=== PATIENT | female | born 1980 | race Caucasian/White ===

== ENCOUNTER 2020-10-19 21:49 | Emergency (ER) | payer OTHER ==
[~2020-10-19] VITALS: Ht 154.9 cm; Wt 86.2 kg
[~2020-10-19 21:49] MED LIST: BUSPAR; DIAZEPAM; FLOMAX0.4 MG PO; HYDROCODON-ACE1 EAC7 PO; HYDROCODONE-AP1 EAC6 PO; NORCO 5-325 TA1 EACH PO; ONDANSETRON HCL4 M2 PO; PHENERGAN 25 MG25 M1 PO; PREDNISONE 10 M10 M1 PO; TESSALON200 MG PO; TORADOL 10 MG T10 MG PO; ULTRAM 50MG TAB50 MG PO; VENTOLIN HFA 1818 GM INH; ZOFRAN ODT4 MG PO; ZOFRAN4 MG PO; ZPAK PO; [UNRECOGNIZED DRUG - REMARK]; trazodone
[2020-10-19] MEDS ORDERED: FLEXERIL PO (23:13)
[2020-10-19] MEDS ORDERED: NORCO5 PO (23:13)
[2020-10-19] MEDS ORDERED: IBU600 MG PO (23:13)
[2020-10-19 23:43] VITALS: BP 106/72
--- NOTE | 2020-10-22 12:19 | EKG ---
[place] [address] ELECTROCARDIOGRAM REPORT Name: ADITYA MACIEL Room: [facility]#: [id number] Admission: 10/19/20 Attend Phys: Discharge: 10/19/20 Date of : 76 Date of Service: 10/19/202157 Report #: [id number] THIS REPORT FOR: //name// [facility] ED Test Date: 2020-10-19 Test Time: 21:58:54 Pat Name: ADITYA MACIEL Department: Room: Gender: F Public Works Manager: LEVY : 1980 Requested By: Dee Singleton Order Number: [id number] J Carlos MD: Braden Mantilla Measurements Intervals [place] Rate: 88 P: 50 MS: 140 QRS: 27 QRSD: 84 T: 48 QT: 346 QTc: 419 Interpretive Statements Sinus rhythm No previous ECG available for comparison Electronically Signed On 10-22-2020 12:19:33 CDT by Braden Matnilla [email or web address] <ELECTRONICALLY SIGNED> By: Braden Mantilla MD, [facility] 10/22/20 1219 57 57 Braden Mantilla MD, FACC /EPI
== END 2020-10-19 23:44 | disposition home or self-care (01) ==
LOC: M.ERS 21:49
DX: M62.830 Muscle spasm of back (principal); M25.512 Pain in left shoulder; F17.210 Nicotine dependence, cigarettes, uncomplicated; Z88.0 Allergy status to penicillin; Z98.890 Other specified postprocedural states; Z98.51 Tubal ligation status; Z86.2 Personal history of diseases of the blood and blood-forming organs and certain disorders involving the immune mechanism